=== PATIENT | male | born 1970 | race Caucasian/White ===

== ENCOUNTER 2017-03-12 15:35 | Observation (INO) | payer BC ==
--- NOTE | 2017-03-12 16:14 | Emergency Department Record ---
History of Present Illness - General Chief Complaint: Dizziness Stated Complaint: SPELLS/SHAKEY/SWEATING Time Seen by Provider: 03/12/17 15:55 Source: Patient Mode of Arrival: Ambulatory Limitations: No limitations - History of Present Illness Initial Comments: 46 yo male presents with recurrent episodes over the last one day. He states he has a tight feeling in the chest, a feeling of shakiness, sweaty and then resolves. The episodes have occurred a few times yesterday and then about 3 times today. The episodes have lasted less than a minute. No syncope. No back or abdominal pain. No recent leg or calf pain. No history of cardiac disease. His mother in her 60's due to a valve issue. PCP Dr Pollard. Non smoker.. No none CAD/PE/DVT MD Complaint: Other Onset/Timin -: Days(s) Timing: Intermittent History of Same: Yes History of Trauma: No Severity: Mild Improves With: Nothing Worsens With: Nothing Associated Symptoms: Other - [place] Coma Scale Eye Response: (4) Open spontaneously Motor Response: (6) Obeys commands Verbal Response: (5) Oriented [place] Total: 15 - Related Data Home Medications Medication Instructions Recorded Confirmed Last Taken Liraglutide [Saxenda] 3 mg IM DAILY 03/12/17 03/12/17 Unknown Allergies Allergy/AdvReac Type Severity Reaction Status Date / Time diazepam [From Diastat] Allergy RASH Verified 05/05/16 09:16 Travel Screening - Travel/Exposure Within Last 30 Days Have you traveled within the last 30 days?: No Review of Systems Constitutional: Denies: Chills, Fever, Malaise, Weakness Eyes: Denies: Eye discharge ENT: Denies: Congestion Respiratory: Reports: Dyspnea. Denies: Cough, Hemoptysis, Stridor, Wheezes Cardiovascular: Reports: Chest pain, Palpitations. Denies: Dyspnea on exertion , Edema, Syncope Endocrine: Denies: Fatigue Gastrointestinal: Denies: Abdominal pain, Diarrhea, Nausea, Vomiting Genitourinary: Denies: Dysuria, Frequency, Hematuria, Urgency Musculoskeletal: Denies: Arthralgia, Back pain, Myalgia, Neck pain Skin: Denies: Bruising, Change in color Neurological: Denies: Headache, Numbness, Tremors, Vertigo, Weakness Psychiatric: Denies: Anxiety Hematological/Lymphatic: Denies: Blood Clots, Easy bleeding, Easy bruising Past Medical History - SOCIAL HISTORY Smoking Status: Never smoker Alcohol Use: None Drug Use: None - RESPIRATORY Hx Respiratory Disorders: Yes Hx Sleep Apnea: Yes Hx of CPAP: Yes - CARDIOVASCULAR Hx Cardio Disorders: No - NEURO Hx Neuro Disorders: No - GI Hx GI Disorders: No - Hx Genitourinary Disorders: No - ENDOCRINE Hx Endocrine Disorders: No - MUSCULOSKELETAL Hx Musculoskeletal Disorders: Yes Hx Arthritis: Yes - PSYCH Hx Psych Problems: Yes Hx Anxiety: Yes - HEMATOLOGY/ONCOLOGY Hx Hematology/Oncology Disorders: No Family Medical History Any Significant Family History?: No Physical Exam - General General Appearance: Alert, Oriented x3, Cooperative, No acute distress Limitations: No limitations - Head Head exam: Normal inspection - Eye Eye exam: Normal appearance, PERRL. negative: Conjunctival injection, Periorbital swelling - ENT ENT exam: Normal exam, Mucous membranes moist Ear exam: Normal external inspection Nasal Exam: Normal inspection Mouth exam: Normal external inspection Teeth exam: Normal inspection - Neck Neck exam: Normal inspection, Full ROM. negative: Tenderness - Respiratory Respiratory exam: Normal lung sounds bilaterally. negative: Accessory muscle use, Respiratory distress, Rhonchi, Stridor, Wheezes - Cardiovascular Cardiovascular Exam: Regular rate, Normal rhythm, Normal heart sounds. negative : Diastolic murmur, Systolic murmur Peripheral Pulses: 2+: Radial (R), Radial (L) - GI/Abdominal GI/Abdominal exam: Soft - Rectal Rectal exam: Deferred - exam: Deferred - Extremities Extremities exam: Normal inspection, Full ROM, Normal capillary refill. negative: Tenderness - Back Back exam: Reports: Normal inspection, Full ROM. Denies: Muscle spasm, Rash noted, Tenderness - Neurological Neurological exam: Alert, Normal gait, Oriented X3. negative: Altered, Motor sensory deficit - Psychiatric Psychiatric exam: Normal affect, Normal mood. negative: Agitated, Anxious - Skin Skin exam: Dry, Intact, Normal color, Warm Course Vital Signs 03/12/17 15:39 Temperature 98.3 F Pulse Rate 79 Respiratory 20 Rate Blood Pressure 147/92 Pulse Ox 97 - Reevaluation(s) Reevaluation #1: No acute changes of the CBC,CMP,D-dimer,Troponin EKG 16:03 NSR, rate 78, intervals normal with borderline QRS of 117, axis normal , RSR noted in V1 V2. No prior 03/12/17 17:18 Reevaluation #2: CXR No acute chest pathology. The results were discussed with the patient. 03/12/17 17:20 Reevaluation #3: I Discussed the case with Shalini Gupta of the admission service The patient will be admitted for chest pain with serial enzymes and a cardiology consultation 03/12/17 17:45 Medical Decision Making - Lab Data Result diagrams: 03/12/17 16:05 03/12/17 16:05 Disposition Disposition: Admit Clinical Impression: Chest pain Qualifiers: Chest pain type: unspecified Qualified Code(s): R07.9 - Chest pain, unspecified Disposition: Still a Patient at [facility] Decision to Admit: Admit from ER Decision to Admit Date: 03/12/17 Decision to Admit Time: 17:46 Condition: (1) Good Forms: Patient Portal Access Time of Disposition: 17:46
[2017-03-12 16:15] LABS: BASO % 0.2 % (0-6); EOS % 1.1 % (0-6); GRAN % 64.6 % (47-80); HEMATOCRIT 48.5 % (42.0-52.0); HEMOGLOBIN 16.5 gm/dl (14.0-18.0); LYMPH % 25.9 % (16-45); MEAN CELL VOLUME 81.4 fl (81-97); MEAN PLATELET VOLUME 10.3 fl (7.4-10.4); MONO % 8.2 % (0-9); PLATELET COUNT 234 K/uL (130-400); RED BLOOD COUNT 5.96 M/uL (4.40-5.70); RED CELL DISTRIBUTION WIDTH 13.4 % (11.5-14.5); WHITE BLOOD COUNT W/O DIFF 6.6 K/uL (4.2-12.2)
[2017-03-12 16:16] LABS: MEAN CORPUSCULAR HEMOGLOBIN 27.6 pg (27-33)
[2017-03-12 16:32] LABS: INR 0.88; PARTIAL THROMBOPLASTIN TIME 30.7 SECONDS (24.5-39.1); PROTHROMBIN TIME (PATIENT) 9.9 SECONDS (9.5-12.1)
[2017-03-12 16:34] LABS: ALB/GLOB RATIO 1.4 (1.1-1.8); ALBUMIN 4.7 gm/dL (3.5-5.0); ALKALINE PHOSPHATASE 91 U/L (38-126); ALT/SGPT 35 U/L (21-72); ANION GAP 13.3 (7-16); AST/SGOT 28 U/L (17-59); BILIRUBIN,TOTAL 0.79 mg/dL (0.2-1.3); BLOOD UREA NITROGEN 14 mg/dL (9-20); CARBON DIOXIDE 26.7 mmol/L (22-30); CREATINE PHOSPHOKINASE 86 U/L (55-170); CREATININE 0.9 mg/dL (0.66-1.25); EST GLOMERULAR FILTRATION RATE > 60 ml/min; GLUCOSE,RANDOM 108 mg/dL (70-110); TOTAL PROTEIN 8.1 gm/dL (6.3-8.2)
[2017-03-12 16:46] LABS: CKMB 0.8 ug/L (0-6); TROPONIN I < 0.012 ng/mL (0.00-0.034)
[2017-03-12] MEDS ORDERED: ASPIRIN 81 MG CHEWABLE TABLET PO ONE (17:49)
[2017-03-12] MEDS ORDERED: ACETAMINOPHEN 500 MG TABLET PO PRN (18:44)
--- NOTE | 2017-03-13 08:08 | RADIOLOGY REPORT ---
EXAM: CHEST, TWO VIEWS HISTORY: HEART PALPITATIONS, CHEST PAIN, AND CHILLS. TECHNIQUE: PA and lateral upright views of the chest were obtained. Comparison: None. FINDINGS: The heart, mediastinum, and pulmonary vasculature are normal. There are no acute infiltrates or effusions. There is no pneumothorax. The bones appear intact. IMPRESSION: NO ACUTE CHEST PATHOLOGY. JOB NUMBER: [id number] MTDD
[2017-03-13] MEDS ORDERED: LIRAGLUTIDE 3 MG SC SCH (10:00)
--- NOTE | 2017-03-13 14:36 | Medical Records Consult ---
DATE OF CONSULTATION: 03/13/17 Mr. Doty is a 46-year-old male who presented to [facility] the day prior for substernal palpitations and sweating that occurred for approximately three hours. Mr. Doty states he occasionally has pressure and sweating sensation after eating sugary foods for the last several years. Yesterday's episode appeared to happen more frequently and lasted longer and therefore he became worried. Mr. Doty himself has no significant medical history. He denies tobacco use, essential hypertension, and hyperlipidemia. His mother had mitral regurgitation and at the age of 62. PAST MEDICAL HISTORY: None. PAST SURGICAL HISTORY: None. MEDICATIONS: Currently include Liraglutide 3 mg IM daily for weight loss and Diazepam prn. ALLERGIES: None. SOCIAL HISTORY: He denies tobacco or any significant alcohol use. FAMILY HISTORY: Again mother had mitral regurgitation and at the age of 62. PHYSICAL EXAMINATION: He is afebrile. Pule is 79, respiration 20, blood pressure 147/92. His ECG demonstrates sinus rhythm with no significant ST, T changes. His laboratory results include a white count of 6.6, hemoglobin of 16.5, platelets of 234,000, sodium of 142, potassium of 4.3, BUN of 14, creatinine of 0.9. IMPRESSION/PLAN: MR. DOTY PRESENTS TO [facility] WITH ATYPICAL CHEST DISCOMFORT. AT THIS TIME WITH NORMAL ECG AND CARDIAC ENZYMES HE CAN UNDERGO AN EXERCISE TREADMILL STRESS TEST. IF THE EXERCISE STRESS TEST IS NEGATIVE MR. DOTY CAN BE DISCHARGED FOR OUTPATIENT FOLLOW-UP. I WOULD RECOMMEND POSSIBLE GI FOLLOW-UP SINCE HE STATES MANY OF HIS SYMPTOMS OCCUR WITH PARTICULAR FOODS. JOB NUMBER: [id number] [facility]
--- NOTE | 2017-03-13 20:19 | Discharge Note ---
VTE H&P Assessment - Risk for VTE Risk for VTE: Yes Risk Level: Very Low Risk Assessment Date: 03/13/17 Risk Assessment Time: 19:00 VTE Orders Placed or Will Be Placed: No VTE Reason for No Prophylaxis: Not Indicated (not in the hospital long enough and I discharged after my evaluation) Discharge Medications - Discharge Medications Home Medications: Ambulatory Orders Liraglutide [Saxenda] 3 mg SC DAILY 03/12/17 [Last Taken Unknown] Discharge Note - Date Date of Discharge Note: 03/13/17 Condition: (1) Good Instructions: Chest Pain (DC) Additional Instructions: follow up with Dr. Coley in 7- 10 days stop ice tea and any caffeine type drinks ie coke and pepsi and drink only water or 1 % milk. return to Ed if any problems or see Dr. Coley Referrals: Parish Laws D.O. [DOCTOR OF OSTEOPATH] - SHANNAN COLEY [Primary Care Provider] - Forms: Patient Portal Access
--- NOTE | 2017-03-14 10:14 | History and Physical Report ---
DATE OF EVALUATION: 03/13/2017 DATE OF ADMISSION: 03/12/2017 CHIEF COMPLAINT: Palpitation and fluttering in his chest at about 12:30 to 1:30 yesterday afternoon on 03/12/2017. HISTORY OF CHIEF COMPLAINT: Patient came into the Emergency Department and was evaluated by Dr. Doty, who was concerned about the possibility of atypical chest pain. Put him in for serial cardiac enzymes, Cardiology consult, and further evaluation. Patient stated he did have about 4 iced teas on the beach yesterday, and he normally drinks some caffeine, but not much. PAST MEDICAL HISTORY: Obesity. He has sleep apnea, and he uses a CPAP. He has arthritis. Some anxiety. PAST SURGICAL HISTORY: He has had 5 knee surgeries, total, and left hand surgery. MEDICATIONS ON ADMISSION: He is on a diet medication that he has not taken for a few days, Saxenda 3 mg subcu. daily, but he has not taken it for the last 3 days. He has lost about 30 pounds. No other medications. ALLERGIES: Diazepam, which causes a rash. FAMILY PSYCHOSOCIAL HISTORY: No cigarette use. No alcohol or illegal drug use. REVIEW OF SYSTEMS: HEENT: No upper respiratory infection symptoms, cough, cold, or congestion. He did have a little cold about 10 days ago, but he is getting over that. Cardiovascular: See Chief Complaint. He had some palpitations. No significant chest pain, heaviness or orthopnea. Respiratory: No cough, cold or congestion. Gastrointestinal: No nausea, vomiting, diarrhea, black stools, or bloody stools. Genitourinary: No dysuria, hematuria, frequency, or burning on urination. Musculoskeletal: He does have pain in his joints. He has had knee surgeries on the knees 5 times. Neurologic: No CVA, paralysis, or paresthesias. Endocrine: No diabetes or thyroid disease, but he is obese. Integument: No rash, ulcers, changes in moles, or yellow skin. PHYSICAL EXAMINATION: VITAL SIGNS: Height 6'1". Weight 304 pounds. Temperature 98.6. Pulse 73. Blood pressure 140/95. Respiratory rate 16. Pulse ox 98% on room air. HEENT: Pupils equal, round, and reactive to light and accommodation. Extraocular muscles intact. Throat is clear. Nose is clear. Tympanic membranes hernandez. NECK: Supple. No jugular venous distention. No hepatojugular reflux. No carotid bruits. Thyroid is smooth. CARDIOVASCULAR: Regular rate and rhythm without murmurs, clicks, rubs, or gallops. RESPIRATORY: Clear to auscultation and percussion. ABDOMEN: Obese, soft, nontender, no hepatosplenomegaly. No masses or tenderness. Bowel sounds active. No bruits. EXTREMITIES: No pitting edema. No cyanosis or clubbing. Full range of motion. Peripheral pulses good. BREASTS: Normal male breasts. GENITALIA: Deferred. RECTAL: Deferred. NEUROLOGIC: Cranial nerves II-XII intact. No gross deficits. Sensation normal. Strength normal. Deep tendon reflexes equal bilaterally. Babinski is negative. MENTAL STATUS: Alert and oriented x3. IMPRESSION: 1. Palpitations. 2. Rule out atypical chest pain. 3. Obesity. PLAN: Serial cardiac enzymes. Serial EKGs. Stress test with Dr. Oshea, and a consult with Dr. Oshea. [facility]
--- NOTE | 2017-03-14 15:44 | Stress Test Report ---
DATE OF TEST: 03/13/17 Mr. Doty is 46 years old undergoing exercise stress testing for atypical chest pain. Resting ECG demonstrates sinus rhythm with normal axis and intervals. He exercised for 6 minutes and 6 seconds per the Zaheer protocol. His resting heart rate was 93 beats per minute and blood pressure was 150/90. At peak exercise, his maximum heart rate was 155, which is 88% of age-predicted maximal heart rate. His peak blood pressure was 210/101, which is a hypertensive response to exercise. Continuous ECG monitoring demonstrated no evidence for ischemia or arrhythmia. FINAL IMPRESSION: 1. ASYMPTOMATIC MAXIMAL ZAHEER STRESS COMPLETING 7 METS WITH NO ECG EVIDENCE FOR ISCHEMIA OR ARRHYTHMIA. 2. HYPERTENSIVE BLOOD PRESSURE RESPONSE TO EXERCISE. 3. AVERAGE PHYSICAL FITNESS FOR AGE. JOB NUMBER: [id number] MTDD
--- NOTE | 2017-03-15 12:37 | Discharge Summary ---
DISCHARGE DIAGNOSES: 1. Palpitations secondary to iced tea. 2. Myocardial infarction ruled out. 3. Obesity. ATTENDING PHYSICIAN: Parish Laws DO REASON FOR HOSPITALIZATION: The patient had fluttering and palpitations in his chest from 12:30 to 1:30 on 03/12/2017. He drank about 4 iced teas on the beach, came into the hospital to be evaluated. Seen by Dr. Doty who was concerned about serial cardiac enzymes and EKG, atypical chest pain on presentation. Placed in the hospital for observation and cardiac monitoring. THERAPY PROVIDED: He had serial cardiac enzymes, serial EKGs which showed no acute changes. He had cardiology consult with Dr. Oshea and a stress test which was normal. Dr. Oshea felt it was not cardiac-induced palpitations. Thought maybe it was diet induced. HOSPITAL COURSE: Unremarkable. Feeling good. No problems at this time. CONDITION ON DISCHARGE: Much improved. DISCHARGE INSTRUCTIONS: Follow up with Dr. Pollard in 7-10 days. Stop the iced tea, caffeine, or Coca-Cola or Pepsi. Drink water or 1% milk. Any problems, return to the emergency department. CC: Dr. Latrice DENNIS
== END 2017-03-13 20:50 | disposition home or self-care (01) ==
LOC: ER 15:35 → MEDSURG 18:10
PROVIDERS: ADMIT Family Medicine; ATTEND Family Medicine
DX: R00.2 Palpitations (principal); E66.9 Obesity, unspecified
CPT/HCPCS: 71020; 80053; 82550; 82553; 84484; 85025; 85379; 85610; 85730; 93005; 93010; 93017; 99220; 99285

== ENCOUNTER 2017-08-09 09:02 | Day surgery (SDC) | payer BC ==
[2017-08-09] MEDS ORDERED: LIDOCAINE 2% MDV (20MG/ML) 20ML VIAL IV ONE (09:03)
[2017-08-09] MEDS ORDERED: PROPOFOL 10 MG/ML VIAL IV ONE (09:03)
--- NOTE | 2017-08-12 12:30 | Operative Note ---
DATE OF SURGERY: 08/09/2017 SURGEON: Christiano Lieberman MD OPERATION: ESOPHAGOGASTRODUODENOSCOPY. INDICATIONS: This is a 46-year-old male with history of epigastric pain and left upper quadrant abdominal pain who presented for esophagogastroduodenoscopy. POSTOPERATIVE DIAGNOSES: 1. LA class II esophagitis. 2. Mild gastritis. 3. Normal duodenum. ANESTHESIA: Sedation is per Anesthesia. Pulse oximetry was monitored throughout the procedure to maintain O2 saturation of 90% or greater. Supplemental oxygen was administered via nasal cannula. Cardiac and vital signs were monitored throughout the duration of the procedure, and they were stable. The procedure of esophagogastroduodenoscopy and risks and benefits of the procedure, including the risk of bleeding and perforation, among others, were explained to the patient who voiced understanding and agreed to have the procedure done. Physical examination was performed, and the patient was found stable for sedation. PROCEDURE: The patient was placed in the left lateral position. Sedation was initiated. A plastic bite block was inserted into the oral cavity. The Olympus [id number] gastroscope was introduced into the oral cavity and advanced to the proximal esophagus without difficulty. The esophageal mucosa was carefully examined upon introduction of the gastroscope. The proximal and mid esophageal mucosa appeared normal. In the distal esophagus there was LA class B esophagitis with no strictures noted. The gastroscope was then advanced into the stomach, and surveillance of the stomach revealed diffuse gastritis along the gastric body and antrum but no ulcers were noted. The gastroscope was then advanced to the descending duodenum without difficulty. The duodenal bulb and descending duodenum appeared normal. The gastroscope was then withdrawn into the stomach and retroflexion was performed. There were no other lesions noted. The gastroscope was then straightened and withdrawn while carefully examining the gastric and esophageal mucosa. No other lesions noted. Multiple duodenal, gastric, and distal esophageal biopsies were obtained. He remained with stable vital signs and was transferred to the recovery room. RECOMMENDATIONS: 1. The patient should continue on his proton pump inhibitors. 2. Adjust for antireflux measures. I would be happy to see him back in the office as needed. Thank you for allowing me to participate in the care of your patient. CC: Dr. Latrice DENNIS
== END 2017-08-09 11:05 | disposition home or self-care (01) ==
LOC: HOP 09:02
PROVIDERS: ATTEND Internal Medicine Gastroenterology
DX: R10.13 Epigastric pain (principal); R10.12 Left upper quadrant pain; K22.70 Barrett's esophagus without dysplasia; K29.70 Gastritis, unspecified, without bleeding

== ENCOUNTER 2018-07-12 19:40 | Emergency (ER) | payer BC ==
--- NOTE | 2018-07-12 20:05 | Emergency Department Record ---
History of Present Illness - General Chief Complaint: Numbness Stated Complaint: TINGLING ON LEFT SIDE, ARM,FACE Time Seen by Provider: 07/12/18 19:55 Source: Patient Mode of Arrival: Ambulatory Limitations: No limitations - History of Present Illness Initial Comments: 47 yo male presents to ED for evaluation of left sided facial numbness and left upper extremity tingling which began approximately 3 hours ago. Patient denies focal weakness on examination, denies feeling off balance or dizziness, and denies change in voice/vision. Patient reports taking 650 mg ASA prior to arrival and Gaviscon for reflux, and that his symptoms are improved. Patient denies history of HTN, elevated cholesterol, previous heart or vascular problems. Onset/Timin -: Hour(s) Location: Left arm History of same: No Place: Home Quality: Tingling Improves With: None Worsens With: None On Anticoagulants: No Context: Gradual onset Treatments Prior to Arrival: Aspirin - [place] Coma Scale Eye Response: (4) Open spontaneously Motor Response: (6) Obeys commands Verbal Response: (5) Oriented [place] Total: 15 - Related Data Allergies/Adverse Reactions: Allergies Allergy/AdvReac Type Severity Reaction Status Date / Time brompheniramine Allergy RASH Verified 07/12/18 19:49 [From Dimetapp Cold-Allergy (PE)] phenylephrine Allergy RASH Verified 07/12/18 19:49 [From Dimetapp Cold-Allergy (PE)] Travel Screening - Travel/Exposure Within Last 30 Days Have you traveled within the last 30 days?: No Review of Systems Constitutional: Denies: Chills, Fever, Malaise, Night sweats Eyes: Denies: Eye discharge, Eye pain ENT: Denies: Congestion, Ear pain, Epistaxis Respiratory: Denies: Cough, Dyspnea Cardiovascular: Denies: Chest pain, Dyspnea on exertion, Palpitations Endocrine: Denies: Fatigue, Heat or cold intolerance Gastrointestinal: Denies: Abdominal pain, Nausea, Vomiting Genitourinary: Denies: Incontinence, Retention Musculoskeletal: Denies: Arthralgia, Back pain, Gout, Joint swelling Skin: Denies: Bruising, Change in color Neurological: Reports: Numbness, Tingling. Denies: Abnormal gait, Confusion, Headache, Seizure Psychiatric: Denies: Anxiety Hematological/Lymphatic: Denies: Anemia, Blood Clots, Easy bleeding, Easy bruising Past Medical History - SOCIAL HISTORY Smoking Status: Never smoker Alcohol Use: None Drug Use: None - RESPIRATORY Hx Respiratory Disorders: Yes Hx Sleep Apnea: Yes Hx of CPAP: Yes - CARDIOVASCULAR Hx Cardio Disorders: Yes Hx Chest Pain: Yes - NEURO Hx Neuro Disorders: No - GI Hx GI Disorders: Yes Hx Abdominal Pain: Yes (epigastric pain) - Hx Genitourinary Disorders: No - ENDOCRINE Hx Endocrine Disorders: No Hx Diabetes: No Hx Thyroid Disease: No - MUSCULOSKELETAL Hx Musculoskeletal Disorders: Yes Hx Arthritis: Yes (knees) - PSYCH Hx Psych Problems: Yes Hx Anxiety: Yes - HEMATOLOGY/ONCOLOGY Hx Hematology/Oncology Disorders: No Family Medical History Any Significant Family History?: No Physical Exam - General General Appearance: Alert, Oriented x3, Cooperative, Mild distress Limitations: No limitations - Head Head exam: Atraumatic, Normocephalic, Normal inspection Head exam detail: negative: Abrasion, Contusion, Bullard's sign, General tenderness, Hematoma, Laceration - Eye Eye exam: Normal appearance. negative: Conjunctival injection, Periorbital swelling, Periorbital tenderness, Scleral icterus - ENT Ear exam: negative: Auricular hematoma, Auricular trauma Nasal Exam: negative: Active bleeding, Discharge, Dried blood, Foreign body Mouth exam: negative: Drooling, Laceration, Muffled voice, Tongue elevation - Neck Neck exam: Normal inspection. negative: Meningismus, Tenderness - Respiratory Respiratory exam: Normal lung sounds bilaterally. negative: Rales, Respiratory distress, Rhonchi, Stridor - Cardiovascular Cardiovascular Exam: Regular rate, Normal rhythm, Normal heart sounds - GI/Abdominal GI/Abdominal exam: Soft. negative: Rebound, Rigid, Tenderness - Rectal Rectal exam: Deferred - exam: Deferred - Extremities Extremities exam: Normal inspection. negative: Pedal edema, Tenderness - Back Back exam: Denies: CVA tenderness (R), CVA tenderness (L) - Neurological Neurological exam: Alert, CN II-XII intact, Normal gait, Oriented X3. negative : Motor sensory deficit - Psychiatric Psychiatric exam: Normal affect, Normal mood - Skin Skin exam: Normal color. negative: Abrasion Type of lesion: negative: abrasion Course Vital Signs 07/12/18 19:48 Temperature 98.3 F Pulse Rate 79 Respiratory 16 Rate Blood Pressure 152/88 Pulse Ox 95 - Reevaluation(s) Reevaluation #1: 07/12/18 20:04 Patient was seen and examined, NIH stroke scale 0 on examination. Patient is not a tPA candidate based on his clinical examination at this time. Reevaluation #2: 07/12/18 20:11 EKG: NSR 74 IVCD 120 ms Normal axis T wave inversion III only, unchanged from previous 03/12/17 Reevaluation #3: 07/12/18 20:34 Laboratory studies were reviewed and are grossly unremarkable for an acute process. Patient is currently in CT for imaging of the head/neck. Reevaluation #4: 07/12/18 22:26 CT/CTA Head/Neck No acute vascular abnormality No acute process within the brain tissue Patient was updated on all results, re-evaluated and reports that his continues to feel well at this time and that his symptoms have resolved. Repeat NIH stroke scale 0. I discussed transfer for neurology evaluation vs. discharge home as he has no objective findings on examination, patient reports that he wants to go home at this time. There is no clinical evidence on examination for an acute CVA/TIA. Patient appears stable for discharge at this time. Medical Decision Making - Lab Data Result diagrams: 07/12/18 20:07 07/12/18 20:07 Disposition Disposition: Discharge Clinical Impression: Paresthesia Disposition: Home, Self-Care Condition: (2) Stable Instructions: Paresthesia (ED) Additional Instructions: Return to ED if your symptoms worsen or if you have any concerns. Follow-up with your family doctor in 3-5 days as directed. Forms: Patient Portal Access Time of Disposition: 22:29 Quality - Quality Measures Quality Measures: N/A - Blood Pressure Screening Does Patient Have Any of the Following: No Blood Pressure Classification: Pre-Hypertensive BP Reading Systolic Measurement: 152 Diastolic Measurement: 88 Screening for High Blood Pressure: < Pre-Hypertensive BP, F/U Documented > [ [id number]] Pre-Hypertensive Follow-up Interventions: Referral to alternative/primary care provider.
[2018-07-12 20:15] LABS: HEMATOCRIT 45.1 % (42.0-52.0); HEMOGLOBIN 15.1 gm/dl (14.0-18.0); MEAN CELL VOLUME 81.3 fl (81-97); MEAN CORPUSCULAR HEMOGLOBIN 27.2 pg (27-33); MEAN CORPUSCULAR HGB CONC 33.5 g/dl (32-36); PLATELET COUNT 242 K/uL (130-400); RED BLOOD COUNT 5.55 M/uL (4.40-5.70); RED CELL DISTRIBUTION WIDTH 13.3 % (11.5-14.5)
[2018-07-12] MEDS ORDERED: 0.9 % SODIUM CHLORIDE 1000ML 1,000 ML IV SCH (20:15)
[2018-07-12 20:25] LABS: BLOOD UREA NITROGEN 18 mg/dL (6-20); CREATININE 0.9 mg/dL (0.7-1.2); EST GLOMERULAR FILTRATION RATE > 60 mL/min
[2018-07-12 20:26] LABS: TOTAL PROTEIN 7.1 g/dL (6.6-8.7)
[2018-07-12 20:28] LABS: GLUCOSE,RANDOM 97 mg/dL (74-109)
[2018-07-12 20:30] LABS: ALB/GLOB RATIO 1.6 (1.1-1.8); ALBUMIN 4.4 g/dL (4.0-5.0); ALT/SGPT 31 U/L (<41); AST/SGOT 21 U/L (10.0-50.0)
[2018-07-12 20:31] LABS: ALKALINE PHOSPHATASE 66 U/L (40-129)
--- NOTE | 2018-07-14 11:28 | CT ANGIOGRAM REPORT ---
EXAM: CT SCAN OF THE BRAIN WITHOUT CONTRAST AND CT ANGIOGRAM OF THE NECK AND BRAIN WITH CONTRAST HISTORY: LEFT SIDED NUMBNESS AND LEFT ARM TINGLING. LEFT FACIAL TINGLING. TECHNIQUE: Initial noncontrast CT imaging of the brain was performed. Subsequent CT angiography of the neck and brain was performed following the bolus administration of 80 ml of Omnipaque 350. Additional multiplanar maximum intensity projection and 3D volume rendered reformatted images were performed on an independent workstation under concurrent supervision. All internal carotid artery percent stenoses are calculated using the distal internal carotid artery diameter as the denominator (NASCET criteria). Comparison: None. Encounter: Not applicable. FINDINGS: CT BRAIN: The ventricles and subarachnoid spaces are normal. The brain parenchyma is unremarkable. There is no mass, mass effect, intracranial hemorrhage, visible acute infarct, or abnormal extraaxial fluid. The skull is intact. The orbits, sinuses, and mastoids are normal. The aortic arch is not included on this examination. The visualized common carotid arteries are normal in caliber. The carotid bifurcations are unremarkable. There is no stenosis. The internal and external carotid arteries are normal in caliber. The left vertebral artery is dominant and is normal in caliber. The right vertebral artery is diminutive in size and terminates in the posterior inferior cerebellar artery. There is no vertebral stenosis or dissection. CTA BRAIN: The intracranial internal carotid arteries are normal in caliber. The anterior and middle cerebral arteries are normal. The vertebrobasilar system and both posterior cerebral arteries are normal. There is no intracranial vascular occlusion. CTA NECK: The neck soft tissues are normal in appearance. The lung apices are clear. IMPRESSION: 1. NEGATIVE CT SCAN OF THE BRAIN WITHOUT CONTRAST. 2. NORMAL CT ANGIOGRAM OF THE NECK AND BRAIN. THERE IS NO SIGNIFICANT STENOSIS OR VASCULAR OCCLUSION. JOB NUMBER: [id number] [facility]
== END 2018-07-12 22:41 | disposition home or self-care (01) ==
LOC: ER 19:40
DX: R20.2 Paresthesia of skin (principal); R20.0 Anesthesia of skin; I10 Essential (primary) hypertension
CPT/HCPCS: 99284 ×2; 96360; 80053; 84484; 85027; 70496; 70498; 93005; 93010; Q9967; J7030

== ENCOUNTER 2018-07-21 11:08 | Observation (INO) | payer BC ==
--- NOTE | 2018-07-21 11:25 | Emergency Department Record ---
History of Present Illness - General Chief Complaint: Chest Pain Stated Complaint: TENSE SENSATION IN CHEST Time Seen by Provider: 07/21/18 11:22 Source: Patient Mode of Arrival: Ambulatory Limitations: No limitations - History of Present Illness Initial Comments: The patient is here due to L chest discomfort off and on for 2 days and it got worse this AM. He describes it as a chest cramping that lasts seconds which he seems to get every 1-5 minutes. There is no SOB, JEREMY, sweating, or nausea with it. The patient did have a similar issue last year and did stay overnight and had a neg EST. The patient was here 9 days ago due to L sided numbness and tingling and he had a neg workup and was discharged. He does not have any hx of HTN, DM, smoking or family hx of CAD. Onset/Timin -: Days(s) Onset: Awoke with symptoms, During rest Pain Location: Left chest Severity: Moderate Severity scale (1-10): 1 Quality: Aching Consistency: Intermittent, Now resolved Worsens With: Nothing Anginal Symptoms: Diaphoresis - Related Data Allergies Allergy/AdvReac Type Severity Reaction Status Date / Time brompheniramine Allergy RASH Verified 07/21/18 11:22 [From Dimetapp Cold-Allergy (PE)] phenylephrine Allergy RASH Verified 07/21/18 11:22 [From Dimetapp Cold-Allergy (PE)] Travel Screening - Travel/Exposure Within Last 30 Days Have you traveled within the last 30 days?: No - Travel/Exposure Within Last Year Have you traveled outside the [place] in the last year?: No - Additonal Travel Details Have you been exposed to anyone with a communicable illness?: No - Travel Symptoms Symptom Screening: None Review of Systems Constitutional: Denies: Chills, Fever Eyes: Denies: Eye discharge ENT: Denies: Congestion Respiratory: Denies: Cough, Dyspnea Cardiovascular: Reports: Chest pain. Denies: Dyspnea on exertion Endocrine: Denies: Fatigue Gastrointestinal: Denies: Diarrhea, Vomiting Genitourinary: Denies: Dysuria Musculoskeletal: Denies: Arthralgia Neurological: Denies: Abnormal gait Past Medical History - SOCIAL HISTORY Smoking Status: Never smoker Alcohol Use: Occasional Drug Use: None - RESPIRATORY Hx Respiratory Disorders: Yes Hx Sleep Apnea: Yes Hx of CPAP: Yes - CARDIOVASCULAR Hx Cardio Disorders: Yes Hx Chest Pain: Yes Hx Irregular Heartbeat: Yes (LBBB) - NEURO Hx Neuro Disorders: No - GI Hx GI Disorders: Yes Hx Abdominal Pain: Yes (epigastric pain) Hx Reflux: Yes - Hx Genitourinary Disorders: No - ENDOCRINE Hx Endocrine Disorders: No Hx Diabetes: No Hx Thyroid Disease: No - MUSCULOSKELETAL Hx Musculoskeletal Disorders: Yes Hx Arthritis: Yes (knees) - PSYCH Hx Psych Problems: Yes Hx Anxiety: Yes - HEMATOLOGY/ONCOLOGY Hx Hematology/Oncology Disorders: No Family Medical History Any Significant Family History?: Yes Hx Cancer: Grandparents Hx Diabetes: Grandparents Hx Heart Disease: Mother Physical Exam - General General Appearance: Alert, Oriented x3, Cooperative, No acute distress - Head Head exam: Atraumatic, Normocephalic, Normal inspection - Eye Eye exam: Normal appearance, PERRL, EOMI - ENT Throat exam: Normal inspection. negative: Tonsillar erythema, Tonsillar exudate - Neck Neck exam: Normal inspection, Full ROM. negative: Tenderness - Respiratory Respiratory exam: Normal lung sounds bilaterally. negative: Respiratory distress - Cardiovascular Cardiovascular Exam: Regular rate, Normal rhythm, Normal heart sounds. negative : Diastolic murmur, Systolic murmur - GI/Abdominal GI/Abdominal exam: Soft, Normal bowel sounds. negative: Tenderness - Extremities Extremities exam: Normal inspection, Full ROM, Normal capillary refill. negative: Tenderness - Back Back exam: Reports: Normal inspection - Neurological Neurological exam: Alert, Normal gait. negative: Abnormal gait, Motor sensory deficit - Psychiatric Psychiatric exam: Anxious Course Vital Signs 07/21/18 11:15 Temperature 98.0 F Pulse Rate 80 Respiratory 20 Rate Blood Pressure 147/79 Pulse Ox 98 - Reevaluation(s) Reevaluation #1: The patient is doing well at this time. He is resting comfortably with no pain or discomfort. I did explain that the workup so far has been very normal. I did recommend a short stay admission and he did agree to that plan. 07/21/18 12:33 Reevaluation #2: I did discuss the case with Dr. Ahumada and Dr. Franco and they both agree with the plan to admit and do a stress test tomorrow. 07/21/18 12:52 Medical Decision Making - Data Complexity MDM Data: Labs Ordered and/or Reviewed, X-Ray Ordered and/or Reviewed, EKG Ordered and/or Reviewed - Lab Data Result diagrams: 07/21/18 11:30 07/21/18 11:30 - EKG Data -: EKG Interpreted by Me EKG: No Acute Changes, Normal EKG, Unchanged From Previous - Radiology Data Radiology results: Report reviewed (CXR: Neg.) Disposition Disposition: Admit Clinical Impression: Chest pain Qualifiers: Chest pain type: unspecified Qualified Code(s): R07.9 - Chest pain, unspecified Disposition: Still a Patient at [facility] [place] Decision to Admit: Admit from ER Decision to Admit Date: 07/21/18 Decision to Admit Time: 12:53 Accepting Physician: Brandyn Time Discussed w/Accepting Physician: 12:54 Condition: (2) Stable Time of Disposition: 12:54 Quality - Quality Measures Quality Measures: N/A - Blood Pressure Screening View Details: Yes Does Patient Have Any of the Following: No Blood Pressure Classification: Hypertensive Reading Systolic Measurement: 147 Diastolic Measurement: 79 Screening for High Blood Pressure: < First Hypertensive BP, F/U Documented > [ G8950] First Hypertensive Follow-up Interventions: Referral to alternative/primary care provider.
[2018-07-21] MEDS ORDERED: ASPIRIN 325 MG TABLET PO ONE (11:31)
[2018-07-21 11:40] LABS: BASO % 0.2 % (0-6); GRAN % 53.8 % (47-80); HEMATOCRIT 48.2 % (42.0-52.0); HEMOGLOBIN 15.8 gm/dl (14.0-18.0); LYMPH % 36.1 % (16-45); MEAN CELL VOLUME 81.7 fl (81-97); MEAN CORPUSCULAR HEMOGLOBIN 26.7 pg (27-33); MEAN CORPUSCULAR HGB CONC 32.8 g/dl (32-36); MONO % 8.9 % (0-9); PLATELET COUNT 222 K/uL (130-400); RED CELL DISTRIBUTION WIDTH 13.2 % (11.5-14.5)
[2018-07-21 11:51] LABS: PARTIAL THROMBOPLASTIN TIME 32.9 SECONDS (24.5-39.1)
[2018-07-21 11:52] LABS: BLOOD UREA NITROGEN 15 mg/dL (6-20); CREATININE 0.8 mg/dL (0.7-1.2); EST GLOMERULAR FILTRATION RATE > 60 mL/min
[2018-07-21 11:55] LABS: GLUCOSE,RANDOM 115 mg/dL (74-109)
[2018-07-21 11:58] LABS: CREATINE PHOSPHOKINASE 132 U/L (39-308)
[2018-07-21 12:00] LABS: CKMB 3.1 ng/mL (<6.73)
[2018-07-21] MEDS ORDERED: ACETAMINOPHEN 325 MG TAB PO PRN (14:03)
--- NOTE | 2018-07-21 14:53 | History & Physical ---
History of Present Illness - Date of Service Date of Service for History & Physical: 07/21/18 - History of Present Illness Admitting Diagnosis: 1. Atypical Chest Pain History of Present Illness: Mr. Doty is a 47 y/o male who presents with vague chest discomfort this morning after waking up. He says he has no pain but it feels like a squeezing, pulling sensation. He says that these episodes of squeezing last about 20-30 seconds and go away spontaneously and do not radiate. They have been occurring for several months and last week he also had some numbing of his left arm. He came to hospital and at that time and workup which included a CT scan of the head and neck was unremarkable. He also notes being admitted about 15 months ago with today's complaint and at that time he had a stress test which did not show any ischemia. He denies any personal or family history of coronary artery disease, and he does not drink alcohol, smoke or use illicit drugs. The patient is admitted for observation and cardiac echo. Vitals: BP: 133/82 HR: 70 T: 97.5 RR: 18 Sats: 97 RA ECG: negative for acute ST-T wave changes. CXR: negative for acute cardiopulmonary findings. Labs: CBC w/ diff and CMP WNL, Troponins x 1 negative. PCP: Dr. Pollard Travel Screening - Travel/Exposure Within Last 30 Days Have you traveled within the last 30 days?: No - Travel/Exposure Within Last Year Have you traveled outside the [place] in the last year?: No - Additonal Travel Details Have you been exposed to anyone with a communicable illness?: No - Travel Symptoms Symptom Screening: None Review of Systems Constitutional: Denies: Chills, Fever Eyes: Denies: Eye discharge ENT: Denies: Congestion Respiratory: Denies: Cough, Dyspnea Cardiovascular: Reports: Chest pain. Denies: Dyspnea on exertion Endocrine: Denies: Fatigue Gastrointestinal: Denies: Diarrhea, Vomiting Genitourinary: Denies: Dysuria Musculoskeletal: Denies: Arthralgia Neurological: Denies: Abnormal gait Past Medical History - SOCIAL HISTORY Smoking Status: Never smoker Alcohol Use: Occasional Drug Use: None - RESPIRATORY Hx Respiratory Disorders: Yes Hx Sleep Apnea: Yes Hx of CPAP: Yes - CARDIOVASCULAR Hx Cardio Disorders: Yes Hx Chest Pain: Yes Hx Irregular Heartbeat: Yes (LBBB) - NEURO Hx Neuro Disorders: No - GI Hx GI Disorders: Yes Hx Abdominal Pain: Yes (epigastric pain) Hx Reflux: Yes - Hx Genitourinary Disorders: No - ENDOCRINE Hx Endocrine Disorders: No Hx Diabetes: No Hx Thyroid Disease: No - MUSCULOSKELETAL Hx Musculoskeletal Disorders: Yes Hx Arthritis: Yes (knees) - PSYCH Hx Psych Problems: Yes Hx Anxiety: Yes - HEMATOLOGY/ONCOLOGY Hx Hematology/Oncology Disorders: No Family Medical History Any Significant Family History?: Yes Hx Cancer: Grandparents Hx Diabetes: Grandparents Hx Heart Disease: Mother H&P Meds/Allergies - Allergies Allergies: Allergies Allergy/AdvReac Type Severity Reaction Status Date / Time brompheniramine Allergy RASH Verified 07/21/18 11:22 [From Dimetapp Cold-Allergy (PE)] phenylephrine Allergy RASH Verified 07/21/18 11:22 [From Dimetapp Cold-Allergy (PE)] - Active Medications Active Medications: Current Medications Acetaminophen (Tylenol 325mg) 650 mg PO Q6H PRN PRN Reason: PAIN - MILD(1-4)/FEVER Aspirin (Ecotrin (Ec)) 325 mg PO DAILY LUPE Pantoprazole Sodium (Protonix) 40 mg PO DAILY LUPE Physical Exam - Vital Signs Vital Signs: Vital Signs - Last 24 Hrs Temp Pulse Pulse Resp BP BP Pulse Ox 07/21/18 13:58 70 16 07/21/18 13:20 97.5 F L 73 16 156/101 99 07/21/18 12:46 69 18 124/69 97 07/21/18 12:16 70 18 133/82 97 07/21/18 11:15 98.0 F 80 20 147/79 98 - General General Appearance: Alert, Oriented x3, Cooperative, No acute distress Limitations: No limitations - Head Head exam: Atraumatic, Normocephalic, Normal inspection - Eye Eye exam: Normal appearance, PERRL, EOMI - ENT Throat exam: Normal inspection. negative: Tonsillar erythema, Tonsillar exudate - Neck Neck exam: Normal inspection, Full ROM. negative: Tenderness - Respiratory Respiratory exam: Normal lung sounds bilaterally. negative: Respiratory distress - Cardiovascular Cardiovascular Exam: Regular rate, Normal rhythm, Normal heart sounds. negative : Diastolic murmur, Systolic murmur Peripheral Pulses: 3+: Radial (R), Radial (L), Dorsalis Pedis (R), Dorsalis Pedis (L) - GI/Abdominal GI/Abdominal exam: Soft, Normal bowel sounds. negative: Tenderness - Extremities Extremities exam: Normal inspection, Full ROM, Normal capillary refill. negative: Tenderness - Back Back exam: Reports: Normal inspection - Neurological Neurological exam: Alert, Normal gait. negative: Abnormal gait, Motor sensory deficit - Psychiatric Psychiatric exam: Anxious Results - Labs Result Diagrams: 07/21/18 11:30 07/21/18 11:30 Labs Last 24 Hours: Laboratory Results - last 24 hr 07/21/18 07/21/18 07/21/18 11:30 11:30 11:30 WBC 5.0 RBC 5.90 H Hgb 15.8 Hct 48.2 MCV 81.7 MCH 26.7 L MCHC 32.8 RDW 13.2 Plt Count 222 MPV 10.0 Gran % 53.8 Lymphocytes % 36.1 Monocytes % 8.9 Eosinophils % 1.0 Basophils % 0.2 PT 10.0 INR 1.0 APTT 32.9 Sodium 140 Potassium 4.1 Chloride 100 Carbon Dioxide 27.0 Anion Gap 13.0 BUN 15 Creatinine 0.8 Estimated GFR > 60 Random Glucose 115 H Calcium 9.7 Creatine Kinase 132 CK-MB (CK-2) 3.1 Troponin T < 0.010 VTE H&P Assessment - Risk for VTE Risk for VTE: Yes Risk Level: Moderate Risk Assessment Date: 07/21/18 Risk Assessment Time: 14:56 VTE Orders Placed or Will Be Placed: Yes Plan - Detailed Diagnosis and Plan (1) Chest discomfort Current Visit: Yes Status: Acute Base Code: R07.89 - OTHER CHEST PAIN Comment: 07/21/18: - vague and non-descriptive history. No hx risk factors for CAD except obesity. Pt took ASA 325mg before coming to hospital. DDx: MSK pain, Anxiety. - examination unremarkable. - CXR: negative for acute cardiopulmonary findings. - ECG: NSR, no acute ST-T changes. - Troponin x 1 negative, trending, continuous awake overnight monitor - 2D echo ordered, Cardiac diet ordered. - Cardiology consulted by ED (2) GERD (gastroesophageal reflux disease) Current Visit: Yes Status: Acute Base Code: K21.9 - GASTRO-ESOPHAGEAL REFLUX DISEASE WITHOUT ESOPHAGITIS Comment: 07/21/18: - Protonix 40mg QD (3) DVT prophylaxis Current Visit: Yes Status: Acute Base Code: [id number] - Comment: 07/21/18: - Lovenox 40mg QD (4) Full code status Current Visit: Yes Status: Acute Base Code: Z78.9 - OTHER SPECIFIED HEALTH STATUS Comment: 07/21/18: - Full code.
[2018-07-21] MEDS: ENOXAPARIN 40 MG/0.4 ML SYR SQ SCH (16:17)
[2018-07-22] MEDS ORDERED: PANTOPRAZOLE SODIUM 40 MG TABLET PO SCH (07:00)
--- NOTE | 2018-07-22 07:28 | RADIOLOGY REPORT ---
EXAM: CHEST, TWO VIEWS HISTORY: DIFFICULTY BREATHING. TECHNIQUE: Frontal and lateral views of the chest were performed. FINDINGS: The heart size is normal. No pulmonary vascular congestion. No infiltrate or pleural effusion. The osseous structures are normal. IMPRESSION: NEGATIVE CHEST EXAMINATION. JOB NUMBER: [id number] [facility]
[2018-07-22] MEDS: ENOXAPARIN 40 MG/0.4 ML SYR SQ SCH (09:19)
[2018-07-22] MEDS ORDERED: ASPIRIN 325 MG TAB ENTERIC-COATED PO SCH (10:00)
--- NOTE | 2018-07-22 15:06 | Discharge Summary ---
Providers Discharge Summary Date: 07/22/18 Date of admission: 07/21/18 13:14 Expected Date of Discharge: 07/22/18 Attending physician: LAKEISHA RAIN Primary care physician: SHANNAN COLEY D.O. Consults: Consult Orders 07/21/18 12:49 Consult NOW Consulting Provider: SHERLYN FORDE Physician Instructions: Please eval and stress 07/22. Reason For Exam: chest discomfort. Physical Exam - Vital Signs Vital Signs: Vital Signs - Last 24 Hrs Temp Pulse Pulse Resp BP Pulse Ox 07/22/18 12:00 72 18 136/75 98 07/22/18 08:26 65 18 07/22/18 07:31 97.9 F 65 18 135/64 99 07/22/18 04:00 77 77 16 123/67 96 07/21/18 23:32 97.9 F 62 16 135/64 96 07/21/18 20:34 66 77 16 07/21/18 20:00 98.4 F 77 16 137/70 97 07/21/18 16:00 97 F L 76 18 121/81 96 - General General Appearance: Alert, Oriented x3, Cooperative, No acute distress Limitations: No limitations - Head Head exam: Atraumatic, Normocephalic, Normal inspection - Eye Eye exam: Normal appearance, PERRL, EOMI - ENT Throat exam: Normal inspection. negative: Tonsillar erythema, Tonsillar exudate - Neck Neck exam: Normal inspection, Full ROM. negative: Tenderness - Respiratory Respiratory exam: Normal lung sounds bilaterally. negative: Respiratory distress - Cardiovascular Cardiovascular Exam: Regular rate, Normal rhythm, Normal heart sounds. negative : Diastolic murmur, Systolic murmur Peripheral Pulses: 3+: Radial (R), Radial (L), Dorsalis Pedis (R), Dorsalis Pedis (L) - GI/Abdominal GI/Abdominal exam: Soft, Normal bowel sounds. negative: Tenderness - Extremities Extremities exam: Normal inspection, Full ROM, Normal capillary refill. negative: Tenderness - Back Back exam: Reports: Normal inspection - Neurological Neurological exam: Alert, Normal gait. negative: Abnormal gait, Motor sensory deficit - Psychiatric Psychiatric exam: Anxious Hospitalization - Hospitalization Admission Diagnosis: 1. Atypical Chest Pain - Problem List/Discharge Diagnosis (1) Chest discomfort Current Visit: Yes Status: Acute Base Code: R07.89 - OTHER CHEST PAIN Comment: 07/22/18: - vague and non-descriptive history. No hx risk factors for CAD except obesity. Pt took ASA 325mg before coming to hospital. DDx: MSK pain, Anxiety. - examination unremarkable. - CXR: negative for acute cardiopulmonary findings. - ECG: NSR, no acute ST-T changes. - Troponin x 3 negative, NSR on patient monitor - 2D echo ordered completed, Cardiac diet ordered. - Cardiology consulted, stress test negative, no underlying cardiac problem identified, d/c per Dr. Montano (2) GERD (gastroesophageal reflux disease) Current Visit: Yes Status: Acute Base Code: K21.9 - GASTRO-ESOPHAGEAL REFLUX DISEASE WITHOUT ESOPHAGITIS Comment: 07/22/18: - Protonix 40mg QD (3) DVT prophylaxis Current Visit: Yes Status: Acute Base Code: [id number] - Comment: 07/22/18: -No prophylaxis ordered for discharge, pt to return to normal level of activity (4) Full code status Current Visit: Yes Status: Acute Base Code: Z78.9 - OTHER SPECIFIED HEALTH STATUS Comment: 07/22/18: - Full code. - Hospitalization Course Disposition: Home, Self-Care Hospital Course: Mr. Doty is a 47 y/o male who presents with vague chest discomfort this morning after waking up. He says he has no pain but it feels like a squeezing, pulling sensation. He says that these episodes of squeezing last about 20-30 seconds and go away spontaneously and do not radiate. They have been occurring for several months and last week he also had some numbing of his left arm. He came to hospital and at that time and workup which included a CT scan of the head and neck was unremarkable. He also notes being admitted about 15 months ago with today's complaint and at that time he had a stress test which did not show any ischemia. He denies any personal or family history of coronary artery disease, and he does not drink alcohol, smoke or use illicit drugs. The patient is admitted for observation and cardiac echo. Vitals: BP: 133/82 HR: 70 T: 97.5 RR: 18 Sats: 97 RA ECG: negative for acute ST-T wave changes. CXR: negative for acute cardiopulmonary findings. Labs: CBC w/ diff and CMP WNL, Troponins x 1 negative. 07/22/18: Pt. is resting comfortably in bed. He states that he has not experienced any symptoms of chest pain since he presented to the ED. He does state that he has a very stressful job and he thinks that his symptoms may be due to anxiety. Serial troponins ahve remained negative. NSR on tele. Echo was completed yesterday. Stress test completed per Dr. Montano, no underlying cardiac disease process identified, plan to discharge home. Pt. to f/u with his PCP within 3-5 days. PCP: Dr. Coley Cardiology: Dr. Montano Procedures: Imaging and X-Rays 07/21/18 11:31 CHEST 2 VIEWS [RAD] Stat Cardiology Procedures 07/21/18 11:31 Truck Driver Supervisor NOW EKG NOW 07/21/18 14:03 Truck Driver Supervisor .Continuous EKG QDX2@0600 Echo W/CF & Cardiac Doppler NOW 07/21/18 15:10 Stress EKG/STD Treadmill ONCE 07/21/18 15:19 Echo W/CF & Cardiac Doppler NOW 07/22/18 08:57 Stress EKG/STD Treadmill ONCE Abnormal Labs: Abnormal Lab Results 07/21/18 07/21/18 07/21/18 Range/Units 11:30 11:30 11:30 RBC 5.90 H (4.40-5.70) M/uL MCH 26.7 L (27-33) pg Random Glucose 115 H (74-109) mg/dL Triglycerides 163 H (<150) mg/dL Cholesterol 214 H (<200) mg/dL LDL Cholesterol Measurd 154.0 H (0-100) mg/dL Condition at Discharge: (2) Stable Discharge Medications - Discharge Medications Home Medications: Ambulatory Orders Pantoprazole Sodium [Protonix] 40 mg PO DAILY 04/10/18 [Last Taken 1 Day Ago ~] Discharge Plan - Discharge Instructions Activity at Discharge: Increase Activity as Tolerated Diet at Discharge: Regular Diet Additional Instructions: Follow up with your PCP within 3-5 days Return to the ED if you experience any worsening chest pain, headache, vision change, or shortness of breath Quality Measures - Quality Measures Quality Measures: Documentation of Current Medications in Medical Record, Screening for High Blood Pressure and F/U Documented - Current Medications Quality Measure: Measure #130: Documentation of Current Medications Documentation of Current Medications: <Current Medications Documented/Reviewed> [G8427] - Blood Pressure Screening Quality Measure: Screening for High Blood Pressure and Follow-Up Documented Does Patient Have Any of the Following: No Blood Pressure Classification: Hypertensive Reading Systolic Measurement: 147 Diastolic Measurement: 79 Screening for High Blood Pressure: < First Hypertensive BP, F/U Documented > [ G8950] First Hypertensive Follow-up Interventions: Lifestyle modifications., Referral to alternative/primary care provider. Lifestyle Modification: Weight Reduction, Increased Physical Activity - Elder Abuse Suspicion Index EASI Reference Information: Shannon CRUZ, Real C, Omar Concepcion, Eduin Muniz.Development and validation of a tool to assist physicians identification of elder abuse: The Elder Abuse Suspicion Index (EASI ). Journal of Elder Abuse and Neglect, 2008; 20 (3): 276-300.
--- NOTE | 2018-07-22 20:12 | Cardiology Consult ---
DATE OF CONSULTATION: 07/21/2018 HISTORY OF PRESENT ILLNESS: Mr. Doty is a very pleasant 47-year-old male with past medical history of obstructive sleep apnea, compliant with C-PAP therapy, and GERD. He presented to [facility] with complaints of left- sided chest cramps. He states that they started shortly after he woke up at about 9:30 a.m., were crampy in nature, and were intermittent lasting only a few minutes at a time. He was recently evaluated at [facility] Emergency Department for complaints of left arm and leg tingling. ED workup was negative. Upon arrival to the Emergency Department today, his blood pressure was elevated at 150/101 mmHg. EKG demonstrated normal sinus rhythm with interventricular conduction delay but no acute ischemic changes. Initial troponin was negative. He has no history of coronary artery disease, hypertension, hyperlipidemia, diabetes mellitus, tobacco use, CVA or TIA, or arrhythmia. No prior echocardiogram. He did have a basic treadmill stress test in 2017, where he achieved 7 METS with no ischemic changes on the EKG. He denies family history of coronary artery disease but his mother did pass away from mitral valve disease. He does not routinely exercise but is very active at work and does a lot of walking. He denies chest pain or shortness of breath with exertion. He denies decreasing exercise tolerance or fatigue. Denies palpitations, lightheadedness, dizziness, syncope, PND, orthopnea, and peripheral edema. He is now resting comfortably in bed and has had no further episodes of chest cramping. ALLERGIES: [facility] . HOME MEDICATIONS: Protonix 40 mg daily. PAST MEDICAL HISTORY: Obstructive sleep apnea and GERD. SOCIAL HISTORY: Occasional alcohol use, denies tobacco use, denies illicit drug use. FAMILY HISTORY: Mother had mitral valve disease. REVIEW OF SYSTEMS: CONSTITUTIONAL: No fevers, chills, sweats, lightheadedness, dizziness, syncope. EYE: No recent visual problems. ENMT: No ear pain, nasal congestion, sore throat. RESPIRATORY: No shortness of breath, cough. CARDIOVASCULAR: Reports chest pain. Denies shortness of breath, palpitations, PND, orthopnea, and syncope. PERIPHERAL VASCULAR: No peripheral edema, claudication. GASTROINTESTINAL: No nausea, vomiting, diarrhea. MUSCULOSKELETAL: No back pain, neck pain, joint pain, muscle pain, or decreased range of motion. SKIN: No rash, abrasions. NEUROLOGIC: Numbness and tingling of left arm and leg last week, which has since resolved. PSYCHIATRIC: No anxiety or depression. PHYSICAL EXAM: GENERAL: Alert and oriented, well nourished, in no acute distress. HEAD: Normocephalic, atraumatic. ENT: EOMI, PERRL. No scleral icterus, erythema. Throat free from erythema or lesions. NECK: Supple, nontender, no carotid bruits, no JVD. RESPIRATORY; Clear to auscultation, nonlabored respiration. No wheezing, rhonchi , rales. PERIPHERAL VASCULAR: No peripheral edema. No cyanosis, clubbing. Peripheral pulses 2+ and symmetric. ABDOMEN: Obese, soft, nontender, nondistended, normal bowel sounds. SKIN: Skin is warm, dry, and pink. No rashes or lesions. MUSCULOSKELETAL: Normal range of motion of all four extremities. Normal gait. NEUROLOGIC: Awake, alert, and oriented x3. PSYCHIATRIC: Cooperative, appropriate mood and affect. LABS: Troponin negative x1. CBC: White blood cell count 5. Hemoglobin 5.9. Hematocrit 15.8. Platelets 222. BMP: Sodium 140. Potassium 4.1. Chloride 100. CO2 27. BUN 15. Creatinine 0.8. Glucose 115. TESTING: EKG: Interventricular conduction delay, normal sinus rhythm, no acute ischemic changes. Basic Treadmill Stress Test on 03/13/17: 7 METS. No ischemic EKG changes, hypertensive response. ASSESSMENT AND PLAN: CHEST PAIN: 47-year-old with low risk for coronary artery disease presented to [facility] with complaint of left-sided chest cramping. The cramps started soon after he woke up at about 9:30 a.m. and were intermittent all day, lasting only a few minutes at a time. Denies associated shortness of breath, nausea, vomiting, lightheadedness, dizziness, and syncope. He is now chest pain free. EKG was reviewed and did not demonstrate any acute EKG changes. Blood pressure was initially elevated at 156/101 mmHg but has improved to 133/82 mmHg. No events on telemetry. He had a basic treadmill stress test in 2017, which was negative for signs of stress-induced ischemia. He was evaluated about a week ago for left arm and leg numbness. This has since resolved. Chest pain today is atypical and patient is low risk for coronary artery disease. However, with his recent symptoms, we will recommend admitting the patient and proceeding with an echocardiogram and basic treadmill stress test in the morning. Continue to trend troponin and monitor blood pressure. JOB NUMBER: [id number] MTDD
--- NOTE | 2018-07-22 20:44 | Stress Test Report ---
DATE OF PROCEDURE: 07/22/2018 INTERPRETING PHYSICIAN: SHERLYN FORDE M.D. PRIMARY CARE PHYSICIAN: DR. SHANNAN COLEY REFERRING PHYSICIAN: DR. LAKEISHA AHUMADA INDICATION: CHEST PAIN. The patient's resting vital signs show a blood pressure of 150/96 mmHg and a heart rate of 89 beats per minute. The patient's resting ECG shows a sinus rhythm with nonspecific interventricular conduction delay with a P-R interval of 147 ms, a QRS duration of 118 ms, and a QTc interval of 393 ms. The patient was exercised on a motorized treadmill using a standard Delano protocol for a total of 8 minutes, achieving 95 METS of workload. The patient achieved a maximum heart rate of 170 beats per minute, which was 97% of the maximum predicted heart rate for his age. The patient didn't have any abnormal symptoms. The patient's ECG doesn't show any ST or T-wave changes suggestive of ischemia. No significant arrhythmia was seen either. IMPRESSION: NORMAL ECG RESPONSE TO EXERCISE STRESS WHILE ACHIEVING OF 9 METS OF [address]LOAD. cc Dr. Shannan Coley and Dr. Lakeisha Ahumada JOB NUMBER: [id number] MTDD
== END 2018-07-22 15:45 | disposition home or self-care (01) ==
LOC: ER 11:08 → MEDSURG 13:14
PROVIDERS: ADMIT Internal Medicine; ATTEND Internal Medicine
DX: R07.89 Other chest pain (principal); I44.7 Left bundle-branch block, unspecified; K21.9 Gastro-esophageal reflux disease without esophagitis; G47.30 Sleep apnea, unspecified; M17.0 Bilateral primary osteoarthritis of knee; Z86.14 Personal history of Methicillin resistant Staphylococcus aureus infection
CPT/HCPCS: 99285 ×2; 82550; 85025; 85730; 85610; 82553; 80048; 80061; 84484 ×2; 71046; 93005 ×2; 93010; 93017; 90686; G0378 ×2; 99217; 99220; J1650

== ENCOUNTER 2019-07-06 11:03 | Day surgery (SDC) | payer BC ==
[2019-07-06] MEDS ORDERED: LIDOCAINE 2% MDV (20MG/ML) 20ML VIAL IV ONE (11:04)
[2019-07-06] MEDS ORDERED: PROPOFOL 10 MG/ML VIAL IV ONE (11:04)
--- NOTE | 2019-07-07 08:20 | Operative Note ---
OPERATION: COLONOSCOPY to the cecum with cold snare polypectomy x2. INDICATION: Abnormal digital rectal exam with polypoid lesion noted by Dr. Pollard. Colonoscopy is performed at this time for further evaluation. This will also serve as a colorectal cancer screening. ANESTHESIA: Intravenous sedation was administered by the department of anesthesiology and included Diprivan titrated to effect. PROCEDURE: Following informed consent from this alert individual including a discussion of the risks and benefits of the procedure and an opportunity for the patient to ask questions, the patient was in the left lateral decubitus position. A digital examination was performed. There was a polypoid lesion noted which was thought to represent a hypertrophied papilla or thrombosed internal hemorrhoid. The endoscope was then advanced into the rectum without much resistance. Rectal mucosa had a normal appearance with normal folds and distensibility. The colonoscope was advanced up through the colon to the level of the cecum with some difficulty due to tortuosity of the sigmoid region and the patient's size. Abdominal pressure support was supplied by the nursing staff. The patient was then also in the supine position and ultimately the cecum was reached. The preparation was fair with some retained semi-solid stool and liquid. Mylicon was utilized as well. From the base of the cecum, the colonoscope was then slowly withdrawn. There was a sessile polyp measuring 7 mm in size in the ascending colon. There was a second polyp noted in the descending colon measuring 6 mm in size likewise removed with cold snare polypectomy. No other changes were noted until the rectum was reached. Retroflexion in the rectum did reveal a fairly large hypertrophied anal papilla seen best in retroflexion. The endoscope was straightened and withdrawn. The patient tolerated the procedure well and was returned to the recovery area in stable condition. IMPRESSION: 1. A 7 mm ascending colon polyp removed with cold snare polypectomy. 2. A 6 mm descending colon polyp removed with cold snare polypectomy. 3. Probable hypertrophied anal papilla. 4. Fair colon preparation. RECOMMENDATIONS: Further recommendations will be forthcoming pending results of pathology obtained today. I will refer this patient to Colorectal Surgery to hopefully remove the anal lesion most likely representing hypertrophied anal papilla. As always, thank you for allowing me to participate in the care of your patient. JEANNIE
== END 2019-07-06 14:20 | disposition home or self-care (01) ==
LOC: HOP 11:03
PROVIDERS: ATTEND Internal Medicine Gastroenterology
DX: K62.89 Other specified diseases of anus and rectum (principal); D12.2 Benign neoplasm of ascending colon; D12.4 Benign neoplasm of descending colon; Z91.19 Patient's noncompliance with other medical treatment and regimen; I10 Essential (primary) hypertension; E78.00 Pure hypercholesterolemia, unspecified; K21.9 Gastro-esophageal reflux disease without esophagitis

== ENCOUNTER 2019-10-31 15:13 | Emergency (ER) | payer BC ==
[2019-10-31 16:32] LABS: ABSOLUTE NEUTROPHIL COUNT 4.81; EOS % 0.5 % (0-6); GRAN % 75.2 % (47-80); HEMATOCRIT 48.1 % (42.0-52.0); HEMOGLOBIN 15.4 gm/dl (14.0-18.0); LYMPH % 17.4 % (16-45); MEAN CELL VOLUME 82.1 fl (81-97); MONO % 6.9 % (0-9); PLATELET COUNT 229 K/uL (130-400); RED BLOOD COUNT 5.86 M/uL (4.40-5.70); RED CELL DISTRIBUTION WIDTH 13.5 % (11.5-14.5); WHITE BLOOD COUNT W/O DIFF 6.4 K/uL (4.2-12.2)
[2019-10-31 16:33] LABS: MEAN CORPUSCULAR HEMOGLOBIN 26.2 pg (27-33)
--- NOTE | 2019-10-31 16:35 | Emergency Department Record ---
History of Present Illness - General Chief Complaint: General Stated Complaint: NOT FEELING WELL Time Seen by Provider: 10/31/19 16:04 Source: Patient Mode of Arrival: Ambulatory Limitations: No limitations - History of Present Illness Initial comments: pt woke up with heartburn this am that would not get better despite antacids. pt became concerned and called 911. Onset/Timin -: Hour(s) Radiation: Non-Radiating Quality: Aching Consistency: Constant, Now resolved Associated Symptoms: Nausea/vomiting - Татьяна Coma Scale Eye Response: (4) Open spontaneously Motor Response: (6) Obeys commands Verbal Response: (5) Oriented Татьяна Total: 15 - Related Data Allergies Allergy/AdvReac Type Severity Reaction Status Date / Time brompheniramine Allergy RASH Verified 10/31/19 17:00 [From [employer] Cold-Allergy (PE)] phenylephrine Allergy RASH Verified 10/31/19 17:00 [From [employer] Cold-Allergy (PE)] Travel/Exposure Screening - Travel/Exposure Within Last 30 Days Have you traveled within the last 30 days?: No - Travel/Exposure Within Last Year Have you traveled outside the [place] in the last year?: No - Additonal Travel/Exposure Details Have you been exposed to anyone with a communicable illness?: No - Travel Symptoms Symptom Screening: None Review of Systems Constitutional: Denies: Chills, Fever, Malaise, Night sweats, Weakness, Weight change Eyes: Denies: Eye discharge, Eye pain, Photophobia, Vision change ENT: Denies: Congestion, Dental pain, Ear pain, Epistaxis Respiratory: Denies: Cough, Dyspnea, Hemoptysis Cardiovascular: Denies: Arrhythmia, Chest pain, Dyspnea on exertion, Orthopnea, Palpitations Endocrine: Denies: Fatigue, Heat or cold intolerance, Polydipsia, Polyuria Gastrointestinal: Reports: Abdominal pain, Nausea. Denies: Constipation, Diarrhea, Hematemesis, Hematochezia, Melena, Vomiting Genitourinary: Denies: Discharge, Dysuria, Frequency, Testicular pain Musculoskeletal: Denies: Arthralgia, Back pain, Gout Skin: Denies: Bruising, Change in hair/nails, Pruritus, Rash Past Medical History - SOCIAL HISTORY Smoking Status: Never smoker Alcohol Use: Rare, Occasional Drug Use: None - RESPIRATORY Hx Respiratory Disorders: Yes Hx Sleep Apnea: Yes Hx of CPAP: Yes Comment:: full cardiac work up within 2 years. - CARDIOVASCULAR Hx Cardio Disorders: Yes Hx Abnormal EKG: Yes (LBBB) Hx Chest Pain: Yes (acid reflux) Hx Deep Vein Thrombosis: No Hx Hypertension: Yes - NEURO Hx Neuro Disorders: No - GI Hx GI Disorders: Yes Hx Abdominal Pain: Yes (epigastric pain) Hx Reflux: Yes Hx of Polyps: Yes - Hx Genitourinary Disorders: No - ENDOCRINE Hx Endocrine Disorders: No Hx Diabetes: No Hx Thyroid Disease: No - MUSCULOSKELETAL Hx Musculoskeletal Disorders: Yes Hx Arthritis: Yes (knees) - PSYCH Hx Psych Problems: No Hx Anxiety: Yes - HEMATOLOGY/ONCOLOGY Hx Hematology/Oncology Disorders: No Family Medical History Any Significant Family History?: No Hx Cancer: Grandparents Hx Diabetes: Grandparents Hx Heart Disease: Mother Physical Exam - General General Appearance: Alert, Oriented x3, Cooperative, No acute distress - Head Head exam: Normal inspection - Eye Eye exam: Normal appearance, PERRL, EOMI Pupils: Normal accommodation - ENT ENT exam: Normal exam, Mucous membranes moist, Normal external ear exam, Normal orophraynx Ear exam: Normal external inspection. negative: External canal tenderness Nasal Exam: Normal inspection. negative: Discharge, Sinus tenderness Mouth exam: Normal external inspection, Tongue normal Teeth exam: Normal inspection. negative: Dental caries Throat exam: Normal inspection. negative: Tonsillar erythema, Tonsillar exudate - Neck Neck exam: Normal inspection, Full ROM. negative: Tenderness - Respiratory Respiratory exam: Normal lung sounds bilaterally. negative: Respiratory distress - Cardiovascular Cardiovascular Exam: Regular rate, Normal rhythm, Normal heart sounds - GI/Abdominal GI/Abdominal exam: Soft, Normal bowel sounds. negative: Tenderness - Rectal Rectal exam: Deferred - exam: Deferred - Extremities Extremities exam: Normal inspection, Full ROM, Normal capillary refill. negative: Tenderness - Back Back exam: Reports: Normal inspection, Full ROM. Denies: Muscle spasm, Rash noted, Tenderness - Neurological Neurological exam: Alert, CN II-XII intact, Normal gait, Oriented X3 - Psychiatric Psychiatric exam: Normal affect, Normal mood - Skin Skin exam: Dry, Intact, Normal color, Warm Course Vital Signs 10/31/19 15:16 Temperature 98.1 F Pulse Rate 77 Respiratory 18 Rate Blood Pressure 151/92 - Reevaluation(s) Reevaluation #1: 10/31/19 18:20 pts symptoms have resolved. they were presnt for several hours and spontaneosly resolved after antacids Reevaluation #2: 10/31/19 18:33 pt conts to feel fine Medical Decision Making - Lab Data Result diagrams: 10/31/19 16:25 10/31/19 16:25 Disposition Disposition: Discharge Clinical Impression: Heart burn, Reflux esophagitis Disposition: Home, Self-Care Condition: (1) Good Instructions: Gastroesophageal Reflux Disease (ED) Additional Instructions: follow up with family doctor and gi doctor. return sooner if worse Forms: Patient Portal Access Quality - Quality Measures Quality Measures: N/A - Blood Pressure Screening Does Patient Have Any of the Following: No Blood Pressure Classification: Hypertensive Reading Systolic Measurement: 151 Diastolic Measurement: 92 Screening for High Blood Pressure: < First Hypertensive BP, F/U Documented > [G8950] First Hypertensive Follow-up Interventions: Follow-up with rescreen GT 1 day and LT 4 weeks.
[2019-10-31 16:46] LABS: BLOOD UREA NITROGEN 11 mg/dL (6-20); CREATININE 0.8 mg/dL (0.7-1.2); EST GLOMERULAR FILTRATION RATE > 60 mL/min
[2019-10-31 16:47] LABS: LIPASE 32 U/L (13-60); TOTAL PROTEIN 7.5 g/dL (6.6-8.7)
[2019-10-31 16:49] LABS: GLUCOSE,RANDOM 123 mg/dL (74-109)
[2019-10-31 16:51] LABS: ALT/SGPT 21 U/L (<41)
[2019-10-31 16:52] LABS: ALB/GLOB RATIO 1.4 (1.1-1.8); ALBUMIN 4.4 g/dL (4.0-5.0); ALKALINE PHOSPHATASE 76 U/L (40-129); AST/SGOT 16 U/L (10.0-50.0)
[2019-10-31] MEDS ORDERED: MAGNESIUM HYDROXIDE/AL HYDROX 30 ML, LIDOCAINE VISC 2% 15ML 15 ML PO ONE ×2 (17:40)
--- NOTE | 2019-10-31 18:30 | RADIOLOGY REPORT ---
EXAMINATION: CHEST 2 VIEWS EXAM DATE: 10/31/2019 6:14 PM TECHNIQUE: Frontal and lateral views of the chest INDICATION: heartburn COMPARISON: None FINDINGS: The cardiomediastinal silhouette is normal. The lungs are clear. No evidence of pneumonia or pulmonary edema. No pneumothorax or pleural effusion. The bones are unremarkable. IMPRESSION: No acute pulmonary process. Dictated by: Gabriel Chan MD on 10/31/2019 6:27 PM. .
== END 2019-10-31 19:00 | disposition home or self-care (01) ==
LOC: ER 15:13
DX: K21.0 Gastro-esophageal reflux disease with esophagitis (principal); R12 Heartburn; I10 Essential (primary) hypertension
CPT/HCPCS: 71046; 80053; 83690; 84484; 85025; 93005; 93010; 99284